=== PATIENT | female | born 1970 | race Caucasian/White ===

== ENCOUNTER 2018-11-26 18:32 | Emergency (ER) | payer OTHER ==
[~2018-11-26] VITALS: Ht 165.1 cm; Wt 67.2 kg
[2018-11-26 18:57] VITALS: BP 121/70
[2018-11-26 20:20] VITALS: BP 118/70
== END 2018-11-26 20:20 | disposition home or self-care (01) ==
LOC: MED 18:32
DX: L03.011 Cellulitis of right finger (principal)
CPT/HCPCS: 99283